=== PATIENT | male | born 1940 | race Caucasian/White ===

== ENCOUNTER 2016-10-30 20:56 | Observation (INO) | payer MEDICARE ==
[~2016-10-30] VITALS: Ht 177.8 cm; Wt 100.0 kg
[2016-10-30 21:00] VITALS: O2SAT 100
[2016-10-30] MEDS ORDERED: LIDOCAINE 1%/EPINEPHrine 1:100,000 SOLN 30 ML VIAL ONE (21:06)
[2016-10-30] MEDS ORDERED: ONDANSETRON HCL 4 MG/2 ML VIAL ONE (21:11)
--- NOTE | 2016-10-30 21:19 | PD ---
HPI Chief Complaint: syncope and collapse Time Seen by Provider: 20:59 Travel History International Travel<30 days: No Contact w/Intl Traveler<30days: No History of Present Illness HPI 72-year-old man, presents to the emergency department following syncope and collapse. He reports he's had episodes of dizziness and syncope for some time. Is not sure what the etiology is. He has not had one in a couple weeks. He was going to the fridge when he felt lightheaded and weak and collapsed to the ground. He came to the people standing around him. He reports after medially coming to develop 2 minute long episode where he could not really feel or move his arms or legs. He states he still felt dizzy at that time. He was called a trauma alert by fire department on scene. He's had some vomiting in route. He has chronic left shoulder pain is had worse left shoulder pain since falling. Currently complains of pain in his head and left shoulder. He also laceration to the back of his head. [facility] Past Medical History Narrative Medical History of mitral valve replacement, aortic valve replacement History of joints or neuritis, pulling out rheumatic on steroids for some time now weaned off History of diabetes when he was on steroids CAD, history of CABG History of benign brain tumor Allergies-Medications (Allergen,Severity, Reaction): Coded Allergies: Demerol (Verified Allergy, Severe, 10/30/16) Review of Systems Except as stated in HPI: all other systems reviewed are Neg Physical Exam Narrative GENERAL: Obese 72-year-old man, full spinal mobilization. SKIN: Focused skin assessment warm/dry. HEAD: Normocephalic. Large part by 7 cm stellate laceration to the posterior occiput. EYES: Pupils equal and round. No scleral icterus. No injection or drainage. ENT: No nasal bleeding or discharge. Mucous membranes pink and moist. NECK: Trachea midline. Cervical collar in place. No midline tenderness. No step-offs or deformities. CARDIOVASCULAR: Regular rate and rhythm. No murmur appreciated. RESPIRATORY: No accessory muscle use. Clear to auscultation. Breath sounds equal bilaterally. GASTROINTESTINAL: Abdomen soft, non-tender, nondistended. Hepatic and splenic margins not palpable. MUSCULOSKELETAL: No obvious deformities. Pain with movement of the left shoulder. He can range it some. Is no obvious deformity bruising ecchymosis or swelling. No other obvious extremity injuries. Back exam is also normal. NEUROLOGICAL: Awake and alert. No obvious cranial nerve deficits. Motor grossly within normal limits. Normal speech. PSYCHIATRIC: Appropriate mood and affect; insight and judgment normal. Data Data Last Documented VS Vital Signs Date Time Temp Pulse Resp B/P Pulse Ox O2 Delivery O2 Flow Rate FiO2 10/30/16 21:00 100 Nasal Cannula 2.00 Orders Lidocai-Epi 1%-1:100,000 Inj (Xylocaine- (10/30/16 21:06) I-Stat Profile (10/30/16 20:59) I-Stat Creatinine (10/30/16 20:59) Complete Blood Count With Diff (10/30/16 20:59) Prothrombin Time / Inr (Pt) (10/30/16 20:59) Act Partial Throm Time (Ptt) (10/30/16 20:59) Type And Screen (10/30/16 20:59) Fibrinogen (10/30/16 20:59) Red Blood Cells (Rbc) (10/30/16 20:59) Chest, Single Ap (10/30/16 20:59) Ct Brain W/O Iv Contrast(Rout) (10/30/16 20:59) Ct Cerv Spine W/O Contrast (10/30/16 20:59) Iv Access Insert/Monitor (10/30/16 20:59) Ecg Monitoring (10/30/16 20:59) Oximetry (10/30/16 20:59) Oxygen Administration (10/30/16 20:59) Pelvis, Ap Only (Routine) (10/30/16 ) Ondansetron Inj (Zofran Inj) (10/30/16 21:11) Electrocardiogram (10/30/16 ) Morphine Inj (Morphine Inj) (10/30/16 22:15) Troponin I (10/30/16 22:09) Ondansetron Inj (Zofran Inj) (10/30/16 22:15) Shoulder, Complete (>2vws) (10/30/16 ) Admit Order (Ed Use Only) (10/30/16 ) Labs Laboratory Tests Test 10/30/16 21:00 White Blood Count 7.6 TH/MM3 Red Blood Count 4.30 MIL/MM3 Hemoglobin 14.0 GM/DL Bedside Hemoglobin 13.3 G/DL Hematocrit 40.1 % Bedside Hematocrit 39.0 % Mean Corpuscular Volume 93.3 FL Mean Corpuscular Hemoglobin 32.6 PG Mean Corpuscular Hemoglobin 35.0 % Concent Red Cell Distribution Width 13.0 % Platelet Count 115 TH/MM3 Mean Platelet Volume 9.2 FL Neutrophils (%) (Auto) 72.1 % Lymphocytes (%) (Auto) 19.4 % Monocytes (%) (Auto) 7.2 % Eosinophils (%) (Auto) 0.7 % Basophils (%) (Auto) 0.6 % Neutrophils # (Auto) 5.5 TH/MM3 Lymphocytes # (Auto) 1.5 TH/MM3 Monocytes # (Auto) 0.6 TH/MM3 Eosinophils # (Auto) 0.1 TH/MM3 Basophils # (Auto) 0.0 TH/MM3 CBC Comment DIFF FINAL Differential Comment Prothrombin Time 11.9 SEC Prothromb Time International 1.1 RATIO Ratio Activated Partial 23.7 SEC Thromboplast Time Fibrinogen 241 mg/dL Bedside Sodium 139 MMOL/L Bedside Potassium 4.2 MMOL/L Bedside Chloride 102 MMOL/L Bedside Blood Urea Nitrogen 21 MG/DL Bedside Creatinine 0.9 MG/DL Bedside Glucose 207 MG/DL Troponin I LESS THAN 0.02 NG/ML Blood Type A NEGATIVE Antibody Screen NEGATIVE Crossmatch Leukocyte-Reduced Red Blood Cells Blood Bank Comment MDM Medical Screen Exam Complete: Yes Emergency Medical Condition: Yes Interpretation(s) LABS: CBC unremarkable Point of care chemistry is remarkable for elevated glucose Troponins negative Head CT: Negative. CT cervical spine: Suspected chronic degenerative changes described above. Moderate impressions on the thecal sac at C3 4 and C4 5 secondary to combination of disc and osteophyte. Chest x-ray: Compression change what appears to be the superior aspect of L1. They do deformity is not known. Status post sternotomy of what appears to be graft material over the ascending aorta. Pelvis x-ray: No definite abnormality is seen. My review of left shoulder x-ray: No definite fracture Differential Diagnosis Syncope and collapse, head injury, neck injury, shoulder injury, arrhythmia, dehydration, electrolyte abnormality, adverse medication effect, other Narrative Course Medical decision making INITIAL: This a 72-year-old man presents emergent (syncope and collapse so she with head injury, and a brief episode of whole body numbness tingling and weakness. This is resolved. Is no evidence of C-spine injury at this time. He does have some left shoulder pain seems to be musculoskeletal but could be radicular. We'll check CT head, C-spine. He had x-ray imaging of his chest and pelvis in the trauma bay. Likely admission for observation for syncope. Trauma Alert - Level One Trauma Alert Level One: Full trauma team activate Time Surgeon Summoned: 20:22 Diagnosis Diagnosis: Primary Impression: Syncope and collapse Additional Impressions: Head injury Scalp laceration Benjamin Amaya MD Oct 30, 2016 21:19
[2016-10-30 21:20] LABS: AUTOMATED NEUTROPHIL # 5.5 TH/MM3 (1.8-7.7); BASOPHIL % 0.6 % (0.0-2.0); EOSINOPHIL # 0.1 TH/MM3 (0-0.4); EOSINOPHIL % 0.7 % (0.0-4.0); HEMATOCRIT 40.1 % (39.0-51.0); HEMO FLAGS DIFF FINAL; LYMPH % 19.4 % (9.0-44.0); LYMPHOCYTE # 1.5 TH/MM3 (1.0-4.8); MEAN CELL VOLUME 93.3 FL (80.0-100.0); MEAN CORPUSCULAR HEMOGLOBIN 32.6 PG (27.0-34.0); MONO % 7.2 % (0.0-8.0); NEUT % 72.1 % (16.0-70.0); PLATELET COUNT 115 TH/MM3 (150-450); WHITE BLOOD COUNT 7.6 TH/MM3 (4.0-11.0)
[2016-10-30 21:22] LABS: I-STAT POTASSIUM 4.2 MMOL/L (3.5-4.9)
--- NOTE | 2016-10-30 21:30 | PD.CONS ---
History of Present Illness Service Trauma Consult Requested By ED Reason for Consult Trauma alert following a fall Primary Care Physician Diagnoses: History of Present Illness This is a gentleman in his 70s who was home when he felt himself become faint and he fell striking the back of his head. He has a history of syncope and falling, so much that he keeps a journal. He was brought in as a trauma alert because he stated he couldn't feel his arms and legs after his initial fall. There was a brief loss of consciousness and he has recall of events up until the fall. He takes aspirin. Review of Systems Constitutional: COMPLAINS OF: Fatigue Endocrine: DENIES: Heat/cold intolerance, Polydipsia, Polyuria, Polyphagia Eyes: DENIES: Blurred vision, Diplopia, Eye inflammation, Eye pain, Vision loss , Photosensitivity, Double Vision Ears, nose, mouth, throat: COMPLAINS OF: Vertigo Respiratory: DENIES: Apneas, Cough, Snoring, Wheezing, Hemoptysis, Sputum production, Shortness of breath Cardiovascular: COMPLAINS OF: Syncope Gastrointestinal: DENIES: Abdominal pain, Black stools, Bloody stools, Constipation, Diarrhea, Nausea, Vomiting, Difficulty Swallowing, Anorexia Genitourinary: DENIES: Sexual dysfunction, Urinary frequency, Urinary incontinence, Urgency, Hematuria, Dysuria, Nocturia, Penile Discharge, Testicular Pain, Testicular Swelling Musculoskeletal: COMPLAINS OF: Joint pain (left shoulder), Stiffness Integumentary: DENIES: Abnormal pigmentation, Nail changes, Pruritus, Rash Hematologic/lymphatic: DENIES: Bruising, Lymphadenopathy Immunologic/allergic: DENIES: Eczema, Urticaria Neurologic: COMPLAINS OF: Poor Balance Psychiatric: DENIES: Anxiety, Confusion, Mood changes, Depression, Hallucinations, Agitation, Suicidal Ideation, Homicidal Ideation, Delusions Past Family Social History Allergies: Coded Allergies: Demerol (Verified Allergy, Severe, 10/30/16) Past Medical History Benign brain tumor Polymyalgia rheumatica Fainting spells with vertigo Diabetes when on steroids for his polymyalgia rheumatica Chronic left shoulder pain, likely rotator cuff injury Past Surgical History Mitral valve replacement Aortic valve replacement CABG x 5 Reported Medications Aspirin Family History Reviewed and not relevant Social History Denies Physical Exam Vital Signs Vital Signs Date Time Temp Pulse Resp B/P Pulse Ox O2 Delivery O2 Flow Rate FiO2 10/30/16 21:00 100 Nasal Cannula 2.00 10/30/16 21:00 100 2.00 Physical Exam GENERAL: This is a well-nourished, well-developed patient, in no apparent distress. SKIN: Complex H shaped laceration to the occipital region of his scalp, small skin tear posterior right elbow HEAD: Calvarium is atraumatic and normocephalic EYES: Pupils equal round and reactive. Extraocular motions intact. No scleral icterus, conjunctiva is pink ENT: Nose without bleeding, purulent drainage or septal hematoma. Throat without erythema, tonsillar hypertrophy or exudate. Uvula midline. Airway patent. NECK: Trachea midline. No JVD or lymphadenopathy. Supple, nontender. CARDIOVASCULAR: Regular rate and rhythm. RESPIRATORY: Clear to auscultation bilaterally, no tenderness or crepitus to palpation of his chest wall or clavicles GASTROINTESTINAL: Abdomen soft, non-tender, nondistended. MUSCULOSKELETAL: Pelvis is stable to palpation and nontender, femoral pulses are palpable bilaterally, there is 1+ bilateral lower extremity edema with faint pulses palpable NEUROLOGICAL: Awake and alert. Cranial nerves II through XII intact. Motor and sensory grossly within normal limits with no focal neurologic deficit and normal speech PSYCHIATRY: Mood and affect appear appropriate Assessment and Plan Assessment and Plan Syncopal fall with a history of frequent falls, scalp laceration but no evidence of acute traumatic injury radiographically or by clinical exam, no indication for trauma admission - Will return care to ED for disposition with possible admission to medicine for workup of this patient's frequent falls - If upon further radiology review, fracture of the cervical spine or small traumatic brain bleed is identified, we will admit Que Lozada MD Oct 30, 2016 21:30
--- NOTE | 2016-10-30 21:42 | RADRPT ---
EXAM DATE/TIME: 10/30/2016 21:05 [facility] COMPARISON: No previous studies available for comparison. INDICATIONS : Trauma alert. Fell from standing position. Posterior head laceration. RADIATION DOSE: 56.35 CTDIvol (mGy) MEDICAL HISTORY : Unable to obtain. SURGICAL HISTORY : Unable to obtain. ENCOUNTER: Initial ACUITY: 1 day PAIN SCALE: Non-responsive LOCATION: cranial TECHNIQUE: Multiple contiguous axial images were obtained of the head. Using automated exposure control and adj ustment of the mA and/or kV according to patient size, radiation dose was kept as low as reasonably a chievable to obtain optimal diagnostic quality images. FINDINGS: CEREBRUM: The ventricles and cortical sulci are widened. There is decreased density in the cerebral white matte r. No evidence of midline shift, mass lesion, hemorrhage or acute infarction. No extra-axial fluid collections are seen. POSTERIOR FOSSA: The cerebellum and brainstem are intact. The 4th ventricle is midline. The cerebellopontine angle i s unremarkable. EXTRACRANIAL: The visualized portion of the orbits is intact. The patient has a scleral band on the left side. Ther e is soft tissue swelling at the posterior scalp just to the right of midline.SKULL: The calvaria is intact. No evidence of skull fracture. CONCLUSION: 1. No acute intracranial abnormality is seen. There is some atrophy and suspected small vessel ischem ic change in the white matter. 2. Posterior scalp injury. Nikhil Dobbins MD on October 30, 2016 at 21:39 Board Certified Radiologist. This report was verified electronically.
[2016-10-30 21:48] LABS: APTT (PATIENT) 23.7 SEC (24.3-30.1); INTERNATIONAL NORMALIZED RATIO 1.1 RATIO; PROTHROMBIN TIME - PATIENT 11.9 SEC (9.8-11.6)
--- NOTE | 2016-10-30 21:56 | RADRPT ---
EXAM DATE/TIME: 10/30/2016 21:05 [facility] COMPARISON: No previous studies available for comparison. INDICATIONS : Trauma alert. Fell from standing position. RADIATION DOSE: 41.37 CTDIvol (mGy) MEDICAL HISTORY : Unable to obtain. SURGICAL HISTORY : Unable to obtain. ENCOUNTER: Initial ACUITY: 1 day PAIN SCALE: Non-responsive LOCATION: Neck TECHNIQUE: Volumetric scanning of the cervical spine was performed. Multiplanar reconstructions i n the sagittal, coronal and oblique axial planes were performed. Using automated exposure control a nd adjustment of the mA and/or kV according to patient size, radiation dose was kept as low as reason ably achievable to obtain optimal diagnostic quality images. FINDINGS: The craniovertebral junction is intact. The C1 ring is intact. The C1-C2 articulation is aligned. There is some degenerative change at the anterior C1-C2 articulation. The dens is intact . The cervical vertebral bodies are normal in height. There is 5 mm of anterior subluxation of C7 on T1. There is some focal lucency seen at the C3, C4 and C6 vertebral bodies which appear fairly we ll corticated and likely are incidental chronic change. C2-C3: The bony spinal canal is normal in size. No evidence of disc bulge or herniation. The neura l foramina are bilaterally patent. C3-C4: Disc space is narrowed. There is mild to moderate disc bulge being worse on the right side c ausing at least a moderate impression on the thecal sac. There is uncovertebral hypertrophy. There is narrowing of the neural foramina. There is mild facet hypertrophy seen bilaterally. There are pr ominent osteophytes seen at the posterior superior aspect of the C4 vertebral body. The disc and ost eophytes cause a moderate impression on the thecal sac at this level. C4-C5: Disc space is narrowed. There are prominent osteophytes seen at the posterior left disc sedrick in causing a moderate focal impression on the thecal sac. There is uncovertebral and facet hypertrop hy being worse on the left. There is some narrowing of the neural foramina being worse on the left. C5-C6: Disc space is narrowed. There is mild disc bulge and osteophytic ridging. There is uncoverte bral and facet hypertrophy. The neural foramina are grossly normal. C6-C7: Disc space is narrowed. There is mild disc bulge and osteophytic ridging. There is uncovert ebral hypertrophy. The neural foramina are grossly normal. C7-T1: Again noted is the 5 mm anterior subluxation of C7 on T1. This is thought to be secondary to moderate facet hypertrophy. The disc space is narrowed. A significant impression on the thecal sac is not seen. CONCLUSION: Suspected chronic degenerative change as described above. There are moderate impress ions on the thecal sac at the C3-C4 and C4-C5 levels secondary to combination of disc and osteophytes . Nikhil Dobbins MD on October 30, 2016 at 21:41 Board Certified Radiologist. This report was verified electronically.
[2016-10-30] MEDS ORDERED: ONDANSETRON HCL 4 MG/2 ML VIAL IV PUSH ONE (22:15)
[2016-10-30] MEDS ORDERED: MORPHINE SULFATE 4 MG/ML INJ IV PUSH ONE (22:15)
--- NOTE | 2016-10-30 22:15 | RADRPT ---
EXAM DATE/TIME: 10/30/2016 20:52 [facility] COMPARISON: No previous studies available for comparison. INDICATIONS : Trauma alert. Pain from fall backwards. MEDICAL HISTORY : None. SURGICAL HISTORY : None. ENCOUNTER: Initial ACUITY: 1 day PAIN SCORE: Non-responsive. LOCATION: Bilateral pelvis FINDINGS: No definite acute fracture is seen. The hip joints are normally aligned. There is some degenerative change at the lower lumbar spine. CONCLUSION: No definite acute abnormality is seen. Nikhil Dobbins MD on October 30, 2016 at 22:03 Board Certified Radiologist. This report was verified electronically.
--- NOTE | 2016-10-30 22:17 | RADRPT ---
EXAM DATE/TIME: 10/30/2016 20:52 [facility] COMPARISON: No previous studies available for comparison. INDICATIONS : Trauma alert. Pain from fall backwards. MEDICAL HISTORY : None. SURGICAL HISTORY : CABG. ENCOUNTER: Initial ACUITY: 1 day PAIN SCORE: Non-responsive. LOCATION: Bilateral chest FINDINGS: The patient is status post sternotomy. There appears to be prosthetic material seen around the proxi mal aorta and aortic valve region. The heart size does appear enlarged. The lungs are grossly clear . There does appear to be some compressive change at the superior aspect of what appears to be the L 1 vertebral body. CONCLUSION: 1. Compressive change of what appears to be the superior aspect of L1. The age of this deformity is not known. 2. Status post sternotomy with what appears to be graft material over the ascending aorta. Nikhil Dobbins MD on October 30, 2016 at 22:00 Board Certified Radiologist. This report was verified electronically.
--- NOTE | 2016-10-30 22:43 | PD ---
Physical Exam Narrative I was asked by Dr. Amaya to repair patient's scalp laceration. Please see his documentation for full H&P. Data Data Last Documented VS Vital Signs Date Time Temp Pulse Resp B/P Pulse Ox O2 Delivery O2 Flow Rate FiO2 10/30/16 21:00 100 Nasal Cannula 2.00 Orders Lidocai-Epi 1%-1:100,000 Inj (Xylocaine- (10/30/16 21:06) I-Stat Profile (10/30/16 20:59) I-Stat Creatinine (10/30/16 20:59) Complete Blood Count With Diff (10/30/16 20:59) Prothrombin Time / Inr (Pt) (10/30/16 20:59) Act Partial Throm Time (Ptt) (10/30/16 20:59) Type And Screen (10/30/16 20:59) Fibrinogen (10/30/16 20:59) Red Blood Cells (Rbc) (10/30/16 20:59) Chest, Single Ap (10/30/16 20:59) Ct Brain W/O Iv Contrast(Rout) (10/30/16 20:59) Ct Cerv Spine W/O Contrast (10/30/16 20:59) Iv Access Insert/Monitor (10/30/16 20:59) Ecg Monitoring (10/30/16 20:59) Oximetry (10/30/16 20:59) Oxygen Administration (10/30/16 20:59) Pelvis, Ap Only (Routine) (10/30/16 ) Ondansetron Inj (Zofran Inj) (10/30/16 21:11) Electrocardiogram (10/30/16 ) Morphine Inj (Morphine Inj) (10/30/16 22:15) Troponin I (10/30/16 22:09) Ondansetron Inj (Zofran Inj) (10/30/16 22:15) Shoulder, Complete (>2vws) (10/30/16 ) Labs Laboratory Tests Test 10/30/16 21:00 White Blood Count 7.6 TH/MM3 Red Blood Count 4.30 MIL/MM3 Hemoglobin 14.0 GM/DL Bedside Hemoglobin 13.3 G/DL Hematocrit 40.1 % Bedside Hematocrit 39.0 % Mean Corpuscular Volume 93.3 FL Mean Corpuscular Hemoglobin 32.6 PG Mean Corpuscular Hemoglobin 35.0 % Concent Red Cell Distribution Width 13.0 % Platelet Count 115 TH/MM3 Mean Platelet Volume 9.2 FL Neutrophils (%) (Auto) 72.1 % Lymphocytes (%) (Auto) 19.4 % Monocytes (%) (Auto) 7.2 % Eosinophils (%) (Auto) 0.7 % Basophils (%) (Auto) 0.6 % Neutrophils # (Auto) 5.5 TH/MM3 Lymphocytes # (Auto) 1.5 TH/MM3 Monocytes # (Auto) 0.6 TH/MM3 Eosinophils # (Auto) 0.1 TH/MM3 Basophils # (Auto) 0.0 TH/MM3 CBC Comment DIFF FINAL Differential Comment Prothrombin Time 11.9 SEC Prothromb Time International 1.1 RATIO Ratio Activated Partial 23.7 SEC Thromboplast Time Fibrinogen 241 mg/dL Bedside Sodium 139 MMOL/L Bedside Potassium 4.2 MMOL/L Bedside Chloride 102 MMOL/L Bedside Blood Urea Nitrogen 21 MG/DL Bedside Creatinine 0.9 MG/DL Bedside Glucose 207 MG/DL Blood Type A NEGATIVE Antibody Screen NEGATIVE Crossmatch Leukocyte-Reduced Red Blood Cells Blood Bank Comment MDM Supervised Visit with MAYDA: No Procedures Procedure Narrative LACERATION REPAIR LOCATION: Occipital lobe LENGTH: Proximal 15 cm Y-shaped NUMBER OF STITCHES/JAGDISH: 13 Jagdish REPAIR: Verbal consent was obtained. The area of the laceration was cleaned and prepped. The laceration was infiltrated with lidocaine with epi. The wound was copiously irrigated and explored without evidence of foreign body, bony involvement, ligament injury, tendon injury, or neurovascular injury. The wound was closed using jagdish. This was a single layer repair. A sterile dressing was applied by nurse. The patient was advised to keep the affected area as clean and dry as possible using soap and water. There were no complications. Patient tolerated the procedure well. Ever Jones Oct 30, 2016 22:43
--- NOTE | 2016-10-30 23:29 | RADRPT ---
EXAM DATE/TIME: 10/30/2016 22:50 [facility] COMPARISON: No previous studies available for comparison. INDICATIONS : Pain from fall posteriorly. MEDICAL HISTORY : None. SURGICAL HISTORY : None. ENCOUNTER: Initial ACUITY: 1 day PAIN SCORE: 5/10 LOCATION: Left shoulder. FINDINGS: Multiple view examination of the left shoulder demonstrates no evidence of fracture or dislocation. The glenohumeral and acromioclavicular joints are maintained. There is normal range of motion betwee n internal and external rotation. Bony mineralization is normal. The patient is status post sternoto my and has graft material over the ascending aorta. CONCLUSION: No acute disease. Nikhil Dobbins MD on October 30, 2016 at 23:27 Board Certified Radiologist. This report was verified electronically.
--- NOTE | 2016-10-30 23:34 | HHI.HP ---
HPI Service [facility] Primary Care Physician Unknown Admission Diagnosis syncope and collapse, head injury, scalp laceration Diagnoses: (1) Syncope and collapse Diagnosis: Principal (2) Head injury Diagnosis: Principal (3) Scalp laceration Diagnosis: Principal (4) Hyperglycemia Diagnosis: Principal (5) Thrombocytopenia Diagnosis: Principal Travel History International Travel<30 Days: No Contact w/Intl Traveler <30 Da: No Traveled to Known Affected Are: No History of Present Illness This is a 72-year-old male with a PMH of MVR, AVR, HTN, Steroid Induced DM, CAD s/p CABG and h/o Syncope who presented to the ER as a Trauma Alert after syncopal episode w/ head injury and scalp laceration. Per patient, he was standing in the kitchen when he had acute episode of dizziness and subsequent syncope. Reports multiple episodes of syncope in the past w/ no clear etiology. On arrival, BP 133/79, HR 86, O2 sat 100% on 2L NC, Afebrile. Chemistry unremarkable except for BS 207. Troponin negative. CBC essentially unremarkable except for platelets 115, no previous labs for comparison. CT Head with no acute intracranial abnormality, posterior scalp injury. CT C- spine with chronic degenerative disease, no acute findings. CXR with compressive change of L1, age unknown. Pelvis X-ray negative for acute findings. Shoulder X-ray negative. S/p eval by Trauma Surgeon w/ no indication for trauma admission. Review of Systems Except as stated in HPI: all other systems reviewed are Neg ROS: 14 point review of systems otherwise negative. Past Family Social History Past Medical History PMH: MVR, AVR, HTN, Steroid Induced DM, CAD s/p CABG and h/o Syncope Past Surgical History PAST SURGICAL HISTORY: CABG Allergies: Coded Allergies: Demerol (Verified Allergy, Severe, 10/30/16) Family History PAST FAMILY HISTORY: Reviewed, positive for DM Social History PAST SOCIAL HISTORY: Negative for all call, tobacco or drugs. Physical Exam Vital Signs Vital Signs Date Time Temp Pulse Resp B/P Pulse Ox O2 Delivery O2 Flow Rate FiO2 10/30/16 21:00 100 Nasal Cannula 2.00 10/30/16 21:00 100 2.00 Physical Exam PE: GENERAL: Elderly male in no acute distress. HEENT: PERRLA, EOMI. No scleral icterus or conjunctival pallor. No lid lag or facial droop. Posterior scalp laceration, s/p repair CARDIOVASCULAR: Regular rate and rhythm. No obvious murmurs to auscultation. No chest tenderness to palpation. RESPIRATORY: No obvious rhonchi or wheezing. Clear to auscultation. Breath sounds equal bilaterally. GASTROINTESTINAL: Abdomen obese but soft, non-tender, nondistended. BS normal. MUSCULOSKELETAL: Extremities without clubbing, cyanosis, or edema. No obvious deformities. NEUROLOGICAL: Awake, alert and oriented x4. No focal neurologic deficits. Moving both upper and lower extremities spontaneously. Laboratory Laboratory Tests Test 10/30/16 21:00 White Blood Count 7.6 Red Blood Count 4.30 Hemoglobin 14.0 Bedside Hemoglobin 13.3 Hematocrit 40.1 Bedside Hematocrit 39.0 Mean Corpuscular Volume 93.3 Mean Corpuscular Hemoglobin 32.6 Mean Corpuscular Hemoglobin 35.0 Concent Red Cell Distribution Width 13.0 Platelet Count 115 Mean Platelet Volume 9.2 Neutrophils (%) (Auto) 72.1 Lymphocytes (%) (Auto) 19.4 Monocytes (%) (Auto) 7.2 Eosinophils (%) (Auto) 0.7 Basophils (%) (Auto) 0.6 Neutrophils # (Auto) 5.5 Lymphocytes # (Auto) 1.5 Monocytes # (Auto) 0.6 Eosinophils # (Auto) 0.1 Basophils # (Auto) 0.0 CBC Comment DIFF FINAL Differential Comment Prothrombin Time 11.9 Prothromb Time International 1.1 Ratio Activated Partial 23.7 Thromboplast Time Fibrinogen 241 Bedside Sodium 139 Bedside Potassium 4.2 Bedside Chloride 102 Bedside Blood Urea Nitrogen 21 Bedside Creatinine 0.9 Bedside Glucose 207 Troponin I LESS THAN 0.02 Blood Type A NEGATIVE Antibody Screen NEGATIVE Crossmatch Leukocyte-Reduced Red Blood Cells Blood Bank Comment Result Diagram: 10/30/16 2100 Assessment and Plan Problem List: (1) Syncope and collapse ICD Code: R55 Status: Acute (2) Head injury ICD Code: S09.90XA Status: Acute (3) Scalp laceration ICD Code: S01.01XA Status: Acute (4) Hyperglycemia ICD Code: R73.9 Status: Acute (5) Thrombocytopenia ICD Code: D69.6 Status: Acute Assessment and Plan A/P: 1. Syncope: s/p acute dizziness w/ syncopal episode, h/o multiple episodes in the past w/ unclear etiology. Admit for Observation, telemetry, check serial cardiac enzymes, check Echo. CXR, Pelvis X-ray and Shoulder X-ray negative for acute findings, images reviewed by me. Cardiology Consult for further evaluation 2. Head Injury: arrived as Trauma Alert secondary to head injury, CT Head/C- Spine w/ no acute findings, images reviewed by me. 3. Scalp Laceration: s/p repair in ER. Hold ASA for now. 4. Hyperglycemia: h/o Steroid-Induced DM, however now off steroid therapy, BS 207, check Hgb A1c, sliding scale w/ Accu-Cheks. 5. Thrombocytopenia: Platelets 115, no previous labs for comparison. Hold ASA as above in light of head trauma/scalp injury. Will monitor, repeat labs in am. 6. DVT Prophylaxis: SCD/teds. 7. Social work for DC planning as needed. 8. Case discussed at length with ER physician. Razia Fuentes MD Oct 30, 2016 23:34
[2016-10-30] MEDS ORDERED: BISACODYL 10 MG SUPP RECTAL PRN (23:45)
[2016-10-30] MEDS ORDERED: MORPHINE SULFATE 4 MG/ML INJ IV PRN (23:45)
[2016-10-30] MEDS ORDERED: SODIUM CHLORIDE 0.9% FLUSH 10 ML FLUSH IV FLUSH PRN (23:45)
[2016-10-30] MEDS ORDERED: ACETAMINOPHEN/HYDROcodone 325 MG/5 MG TAB PO PRN (23:45)
[2016-10-30] MEDS ORDERED: ACETAMINOPHEN 325 MG TAB PO PRN (23:45)
[2016-10-30] MEDS ORDERED: PRED10 PO (23:55)
[2016-10-30] MEDS ORDERED: LISI-515 PO (23:55)
[2016-10-30] MEDS ORDERED: MECL-62 PO (23:55)
[2016-10-30] MEDS ORDERED: LYCO10CA PO (23:55)
[2016-10-30] MEDS ORDERED: PANT20TA2 PO (23:55)
[2016-10-30] MEDS ORDERED: ASPI325T PO (23:55)
[2016-10-30] MEDS ORDERED: LATA0.002 EACH EYE (23:55)
[2016-10-30] MEDS ORDERED: ATOR40TA16 PO (23:55)
[2016-10-31] VITALS (7 sets, daily range): BP systolic 129–169; BP diastolic 72–81; PULSE 80–95; RESP 18–20; TEMP 97.5–98.1; O2SAT 93–97
[2016-10-31] MEDS: SODIUM CHLOR 0.9% 1000 ML INJ 1,000 ML IV SCH ×3 (01:37→21:59)
[2016-10-31] MEDS: ONDANSETRON HCL 4 MG/2 ML VIAL IVP PRN ×2 (03:11→11:28)
--- NOTE | 2016-10-31 08:05 | HHI.PR ---
Subjective Remarks Follow up for syncope with head injury. The patient reports history of BPPV, giant cell arteritis, and polymyalgia rheumatica; currently slowly weaning down on his steroids, now on Prednisone 6mg daily. The patient reports he has been feeling pretty well up until last night when he had acute onset of dizziness and disorientation. He felt very ill to his stomach then all of a sudden went down. Today he feels slightly better but he is very worried about this syncopal episode. He reports some nausea today but no vomiting. Denies any current dizziness. He states meclizine doesn't work for him. Economics Analyst is Dr. Frederick with [facility]. His cardiac cath and TAVR were done by Dr. Marshall and Dr. Candelaria also at [facility] [place] in [place], [place]. Objective Vitals Vital Signs Date Time Temp Pulse Resp B/P Pulse Ox O2 Delivery O2 Flow Rate FiO2 10/31/16 04:40 97.9 82 20 129/78 97 10/31/16 04:09 80 10/31/16 02:54 97.7 86 20 133/79 96 10/30/16 21:00 100 Nasal Cannula 2.00 10/30/16 21:00 100 2.00 Result Diagram: 10/30/16 2100 Imaging Last Impressions Head CT 10/30/162058 Signed Impressions: Service Date/Time: Sunday, October 30, 2016 21:05 - CONCLUSION: 1. No acute intracranial abnormality is seen. There is some atrophy and suspected small vessel ischemic change in the white matter. 2. Posterior scalp injury. Nikhil Dobbins MD Chest X-Ray 10/30/162058 Signed Impressions: Service Date/Time: Sunday, October 30, 2016 20:52 - CONCLUSION: 1. Compressive change of what appears to be the superior aspect of L1. The age of this deformity is not known. 2. Status post sternotomy with what appears to be graft material over the ascending aorta. Nikhil Dobbins MD Cervical Spine CT 10/30/162058 Signed Impressions: Service Date/Time: Sunday, October 30, 2016 21:05 - CONCLUSION: Suspected chronic degenerative change as described above. There are moderate impressions on the thecal sac at the C3-C4 and C4-C5 levels secondary to combination of disc and osteophytes. Nikhil Dobbins MD Shoulder X-Ray 10/30/16 0000 Signed Impressions: Service Date/Time: Sunday, October 30, 2016 22:50 - CONCLUSION: No acute disease. Nikhil Dobbins MD Pelvis X-Ray 10/30/16 0000 Signed Impressions: Service Date/Time: Sunday, October 30, 2016 20:52 - CONCLUSION: No definite acute abnormality is seen. Nikhil Dobbins MD Objective Remarks GENERAL: Well-nourished, well-developed elderly male patient in NAD. SKIN: Warm and dry. No rash. HEAD: Normocephalic. Posterior scalp laceration s/p repair. EYES: Pupils equal and round. No scleral icterus. No injection or drainage. ENT: No nasal bleeding or discharge. Mucous membranes pink and moist. NECK: Supple. Trachea midline. CARDIOVASCULAR: Regular rate and rhythm. S1, S2 noted. No murmur appreciated. RESPIRATORY: No accessory muscle use. Clear to auscultation. Breath sounds equal bilaterally. GASTROINTESTINAL: Abdomen soft, non-tender, nondistended. Normoactive bowel sounds x4. MUSCULOSKELETAL: No obvious deformities. Extremities without clubbing, cyanosis , or edema. NEUROLOGICAL: Awake and alert. No obvious cranial nerve deficits. Motor grossly within normal limits. Normal speech. PSYCHIATRIC: Appropriate mood and affect; insight and judgment normal. Medications and IVs Current Medications Medications (Trade) Dose Ordered Sig/Sánchez Route Start Time Stop Time Status Last Admin (NS 1000 ml Inj) 1,000 ml @ 100 mls/hr Q10H IV 10/30/16 23:31 10/31/16 01:37 (NS Flush) 2 ml UNSCH PRN IV FLUSH 10/30/16 23:45 (NS Flush) 2 ml BID IV FLUSH 10/31/16 09:00 (Zofran Inj) 4 mg Q6H PRN IVP 10/30/16 23:45 10/31/16 03:11 (Dulcolax Supp) 10 mg DAILY PRN RECTAL 10/30/16 23:45 (Tylenol) 650 mg Q6H PRN PO 10/30/16 23:45 ([place] 5-325 Mg) 1 tab Q4H PRN PO 10/30/16 23:45 (Morphine Inj) 2 mg Q3H PRN IV 10/30/16 23:45 A/P Problem List: (1) Syncope and collapse ICD Code: R55 Status: Acute (2) Head injury ICD Code: S09.90XA Status: Acute (3) Scalp laceration ICD Code: S01.01XA Status: Acute (4) Hyperglycemia ICD Code: R73.9 Status: Acute (5) Thrombocytopenia ICD Code: D69.6 Status: Acute Assessment and Plan 72-year-old male with a PMH of MVR, AVR, HTN, Steroid Induced DM, CAD s/p CABG and h/o Syncope who presented to the ER as a Trauma Alert after syncopal episode w/ head injury and scalp laceration. Syncope: s/p acute dizziness w/ syncopal episode, h/o multiple episodes in the past w/ unclear etiology. Head CT, CXR, Pelvis X-ray and Shoulder X-ray negative for acute findings, images reviewed by me. Monitor on telemetry. Ruled out ACS with negative serial cardiac enzymes and EKGs. Check Carotid U/S and Echo. Cardiology Consult for further evaluation, discussed with Dr. Au, appreciate recommendations Obtain records from patient's recent cath/TAVR in . Needs Holter prior to discharge. Cardiology also recommended neuro evaluation, consult placed Neuro ordered Brain MRI/MRA and EEG Head Injury: arrived as Trauma Alert secondary to head injury, CT Head/C-Spine w/ no acute findings, images reviewed by me. Scalp Laceration: s/p repair in ER, have 12 ayan removed in 10-14 days (11/10 -11/13). Hold ASA for now. Hyperglycemia: h/o Steroid-Induced DM, BS 207, Hgb A1c 6.2. Thrombocytopenia: Platelets 115, no previous labs for comparison. Hold ASA as above in light of head trauma/scalp injury. Will monitor. Polymyalgia Rheumatic/Giant Cell Arteritis: continue patient's Prednisone 6mg daily. Outpatient f/up with rheumatology. DVT Prophylaxis: SCD/teds. Avoid chemical prophylaxis with recent head injury. Written by Marti Johnson, acting as scribe for Dr. Murphy on 10/31/16 at 11:07 All or portions of this note were transcribed by scribe GAVIN Oreilly. I , Dr. Sergei Murphy personally performed the history, physical exam, and medical decision making; and confirmed the accuracy of the information in the transcribed note. Authenticated by Dr. Sergei Murphy on 10/31/16 at 23:10. Marti Johnson PA-C Oct 31, 2016 08:05 Jasbir Murphy DO Oct 31, 2016 23:10
[2016-10-31] MEDS ORDERED: META48.53 PO (08:53)
[2016-10-31] MEDS: SODIUM CHLORIDE 0.9% FLUSH 10 ML FLUSH IV FLUSH SCH ×2 (09:00→21:57)
[2016-10-31 10:23] LABS: BASOPHIL % 0.3 % (0.0-2.0); EOSINOPHIL % 0.3 % (0.0-4.0); HEMATOCRIT 36.7 % (39.0-51.0); HEMO FLAGS DIFF FINAL; LYMPH % 11.7 % (9.0-44.0); MEAN CELL VOLUME 93.2 FL (80.0-100.0); MEAN CORPUSCULAR HEMOGLOBIN 32.9 PG (27.0-34.0); MEAN CORPUSCULAR HGB CONC 35.3 % (32.0-36.0); MONO % 8.5 % (0.0-8.0); NEUT % 79.2 % (16.0-70.0); PLATELET COUNT 101 TH/MM3 (150-450); RED BLOOD COUNT 3.94 MIL/MM3 (4.50-5.90); RED CELL DISTRIBUTION WIDTH 13.4 % (11.6-17.2); WHITE BLOOD COUNT 8.9 TH/MM3 (4.0-11.0)
[2016-10-31 10:47] LABS: ALKALINE PHOSPHATASE 58 U/L (45-117); ALT (GPT) 20 U/L (12-78); ANION GAP 8 MEQ/L (5-15); AST (GOT) 9 U/L (15-37); BICARBONATE 24.9 MEQ/L (21.0-32.0); BLOOD UREA NITROGEN 16 MG/DL (7-18); CHLORIDE 107 MEQ/L (98-107); GLOMERULAR FILTRATION RATE 80 ML/MIN (>89); POTASSIUM 3.9 MEQ/L (3.5-5.1); SODIUM (NA) 140 MEQ/L (136-145); TOTAL BILIRUBIN ADULT 1.1 MG/DL (0.2-1.0)
[2016-10-31] MEDS ORDERED: PILL SPLITTER OTHER PRN (11:30)
--- NOTE | 2016-10-31 11:50 | PD.CONS ---
HPI Service Cardiology Consult Requested By Hosp Reason for Consult Syncope Primary Care Physician Unknown History of Present Illness 72 y/o M with PMHx of CAD s/p CABG 1994, MVR in 2010 and TAVR in 04/2016, HTN, DM, benign positional vertigo, temporal arteritis and polymyalgia rheumatica who presented to the ER after syncopal episode w/ head injury and scalp laceration. He reports he was in his usual state of health until yesterday when while standing in the kitchen had an acute episode of dizziness and subsequent blackout. Reports multiple episodes of syncope in the past of no clear etiology. He states before episodes happen he has bilateral finger numbness but no CV symptoms. Vital signs on arrival unremarkable as well as blood work and imaging. Cardiology has been consulted for further management and evaluation. He denies fever, chills, chest pain, SOB, palpitations, new medications, weight loss, bleeding, blurry vision. Review of Systems Consitutional: DENIES: Fatigue, Fever, Chills, Weight gain, Weight loss Eyes: DENIES: Amaurosis Fugax, Change in vision HEENT: DENIES: Lightheadedness, Change in hearing Respiratory: DENIES: See HPI, Cough, Snoring, Shortness of breath, Wheezing, Sputum production Cardiovascular: DENIES: See HPI, Chest pain, Palpitations, Syncope, Tachycardia Gastrointestinal: COMPLAINS OF: Nausea, DENIES: Vomiting, Change in bowel habits, Reflux, Bloody stools, Melena Genitourinary: DENIES: Urinary incontinence, Difficulty voiding Integumentary: DENIES: Rash Neurologic: DENIES: Tingling or numbness, Memory problems, Poor Balance, Stroke symptoms Musculoskeletal: DENIES: Joint pain, Muscle pain, Limited range of motion, Back pain Psychiatric: DENIES: Anxiety, Depression, Sleep disturbances Hematologic: DENIES: Bruising tendencies, Bleeding tendencies Endocrine: DENIES: Weight gain, Weight loss, Thyroid disease Past Family Social History Allergies: Coded Allergies: Demerol (Verified Allergy, Severe, 10/30/16) Past Medical History CAD s/p CABG 1994 MVR 2010 TAVR 2015 HTN DM BPV GCA Past Surgical History CABG MVR TAVR Reported Medications Reported Meds & Active Scripts Active Reported Metamucil Original Texture (Psyllium Hydrophilic Mucilloid) 48.57 % Pow 1 Scoop PO BID PRN 1 rounded TEASPOON in 8 oz of liquid at the first sign of irregularity. Latanoprost Opth Drops (Latanoprost) 0.005% Drops 1 Drop EACH EYE HS Refrigerate until opened. Lycopene 10 Mg Cap 20 Mg PO DAILY Lisinopril 20 Mg Tab 15 Mg PO HS Atorvastatin (Atorvastatin Calcium) 40 Mg Tab 40 Mg PO HS Meclizine (Meclizine HCl) 25 Mg Tab 25 Mg PO PRN Pantoprazole (Pantoprazole Sodium) 20 Mg Tab 20 Mg PO PRN Prednisone 10 Mg Tab 6 Mg PO DAILY Aspirin 325 Mg Tab 325 Mg PO DAILY Active Ordered Medications Current Medications Medications (Trade) Dose Ordered Sig/Sánchez Route Start Time Stop Time Status Last Admin (NS 1000 ml Inj) 1,000 ml @ 100 mls/hr Q10H IV 10/30/16 23:31 10/31/16 01:37 (NS Flush) 2 ml UNSCH PRN IV FLUSH 10/30/16 23:45 (NS Flush) 2 ml BID IV FLUSH 10/31/16 09:00 (Zofran Inj) 4 mg Q6H PRN IVP 10/30/16 23:45 10/31/16 11:28 (Dulcolax Supp) 10 mg DAILY PRN RECTAL 10/30/16 23:45 (Tylenol) 650 mg Q6H PRN PO 10/30/16 23:45 ([place] 5-325 Mg) 1 tab Q4H PRN PO 10/30/16 23:45 (Morphine Inj) 2 mg Q3H PRN IV 10/30/16 23:45 (Aspirin) 325 mg DAILY PO 11/01/16 09:00 (Lipitor) 40 mg HS PO 10/31/16 21:00 (Xalatan 0.005% Opth Soln) 1 drop HS EACH EYE 10/31/16 21:00 (Prinivil) 15 mg HS PO 10/31/16 21:00 (Deltasone) 1 mg DAILY PO 10/31/16 12:00 (Pill Splitter) 1 ea UNSCH PRN OTHER 10/31/16 11:30 (Deltasone) 5 mg DAILY PO 10/31/16 12:00 Family History Noncontributory Physical Exam Vital Signs Vital Signs Date Time Temp Pulse Resp B/P Pulse Ox O2 Delivery O2 Flow Rate FiO2 10/31/16 09:02 97.5 86 18 169/77 93 10/31/16 04:40 97.9 82 20 129/78 97 10/31/16 04:09 80 10/31/16 02:54 97.7 86 20 133/79 96 10/30/16 21:00 100 Nasal Cannula 2.00 10/30/16 21:00 100 2.00 Physical Exam GENERAL: Well-nourished, well-developed patient. SKIN: Warm and dry. HEAD: Normocephalic. EYES: No scleral icterus. No injection or drainage. NECK: Supple, trachea midline. No JVD or lymphadenopathy. CARDIOVASCULAR: Regular rate and rhythm without murmurs, gallops, or rubs. RESPIRATORY: Breath sounds equal bilaterally. No accessory muscle use. GASTROINTESTINAL: Abdomen soft, non-tender, nondistended. EXTREMITIES: No cyanosis, or edema. NEUROLOGICAL: Awake, alert, and oriented x 3. Non-focal. Laboratory Laboratory Tests Test 10/30/16 10/31/16 10/31/16 21:00 02:36 09:33 White Blood Count 7.6 8.9 Red Blood Count 4.30 3.94 Hemoglobin 14.0 13.0 Bedside Hemoglobin 13.3 Hematocrit 40.1 36.7 Bedside Hematocrit 39.0 Mean Corpuscular Volume 93.3 93.2 Mean Corpuscular Hemoglobin 32.6 32.9 Mean Corpuscular Hemoglobin 35.0 35.3 Concent Red Cell Distribution Width 13.0 13.4 Platelet Count 115 101 Mean Platelet Volume 9.2 9.0 Neutrophils (%) (Auto) 72.1 79.2 Lymphocytes (%) (Auto) 19.4 11.7 Monocytes (%) (Auto) 7.2 8.5 Eosinophils (%) (Auto) 0.7 0.3 Basophils (%) (Auto) 0.6 0.3 Neutrophils # (Auto) 5.5 7.0 Lymphocytes # (Auto) 1.5 1.0 Monocytes # (Auto) 0.6 0.8 Eosinophils # (Auto) 0.1 0.0 Basophils # (Auto) 0.0 0.0 CBC Comment DIFF FINAL DIFF FINAL Differential Comment Prothrombin Time 11.9 Prothromb Time International 1.1 Ratio Activated Partial 23.7 Thromboplast Time Fibrinogen 241 Bedside Sodium 139 Bedside Potassium 4.2 Bedside Chloride 102 Bedside Blood Urea Nitrogen 21 Bedside Creatinine 0.9 Bedside Glucose 207 Troponin I LESS THAN 0.02 0.02 0.02 Blood Type A NEGATIVE Antibody Screen NEGATIVE Crossmatch Leukocyte-Reduced Red Blood Cells Blood Bank Comment Sodium Level 140 Potassium Level 3.9 Chloride Level 107 Carbon Dioxide Level 24.9 Anion Gap 8 Blood Urea Nitrogen 16 Creatinine 0.83 Estimat Glomerular Filtration 80 Rate Random Glucose 111 Calcium Level 8.4 Total Bilirubin 1.1 Aspartate Amino Transf 9 (AST/SGOT) Alanine Aminotransferase 20 (ALT/SGPT) Alkaline Phosphatase 58 Total Protein 5.9 Albumin 3.4 Result Diagram: 10/31/1693210/31/16932 Imaging Last Impressions Head CT 10/30/162058 Signed Impressions: Service Date/Time: Sunday, October 30, 2016 21:05 - CONCLUSION: 1. No acute intracranial abnormality is seen. There is some atrophy and suspected small vessel ischemic change in the white matter. 2. Posterior scalp injury. Nikhil Dobbins MD Chest X-Ray 10/30/162058 Signed Impressions: Service Date/Time: Sunday, October 30, 2016 20:52 - CONCLUSION: 1. Compressive change of what appears to be the superior aspect of L1. The age of this deformity is not known. 2. Status post sternotomy with what appears to be graft material over the ascending aorta. Nikhil Dobbins MD Cervical Spine CT 10/30/162058 Signed Impressions: Service Date/Time: Sunday, October 30, 2016 21:05 - CONCLUSION: Suspected chronic degenerative change as described above. There are moderate impressions on the thecal sac at the C3-C4 and C4-C5 levels secondary to combination of disc and osteophytes. Nikhil Dobbins MD Shoulder X-Ray 10/30/16 0000 Signed Impressions: Service Date/Time: Sunday, October 30, 2016 22:50 - CONCLUSION: No acute disease. Nikhil Dobbins MD Pelvis X-Ray 10/30/16 0000 Signed Impressions: Service Date/Time: Sunday, October 30, 2016 20:52 - CONCLUSION: No definite acute abnormality is seen. Nikhil Dobbins MD Assessment and Plan Problem List: (1) Syncope and collapse Assessment and Plan: 72 y/o M with above history and findings admitted after syncopal episode. Patient has been dealing with this for a long time. DDx cardiac vs neuro etiology vs endo. Patient on chronic steroids given GCA/PMR. EKG NSR, IVCD with a RAD . No acute ST changes. Negative cardiac markers. He remains afebrile and HD stable. Recommendations: 2DEcho Carotid Ultrasound Neurology consult (BPV) Cont Telemetry Get records from [facility] regarding TAVR/LHC Check orthostatic 24hr Holter on discharge TSH, free T3 and T4 Cont home medications for CAD Thank for for the opportunity to taker part in the care of this patient Further therapy to be determined (2) Hyperglycemia (3) Scalp laceration (4) Head injury (5) Thrombocytopenia Dennis Vásquez MD Oct 31, 2016 11:49
--- NOTE | 2016-10-31 12:25 | EC ---
Study Study Date:10/31/2016 STUDY CONCLUSIONS SUMMARY - Left ventricle: The cavity size was normal. Wall thickness was normal. Systolic function was normal. The estimated ejection fraction was in the range of 50% to 55%. Wall motion was normal; there were no regional wall motion abnormalities. - Aortic valve: Valve area: 1.57cm^2 (Vmax). - Pulmonary arteries: PA peak pressure: 31mm Hg (S). If LV function is below 40, please consider prescribing an ACEI or ARB or document rationale for non-use. PROCEDURE DATA STUDY STATUS: Elective. Procedure: Transthoracic echocardiography. Image quality was poor. Scanning was performed from the parasternal, apical, and subcostal acoustic windows. Study completion: The patient tolerated the procedure well. Transthoracic echocardiography. M-mode, complete 2D, complete spectral Doppler, and color Doppler. Height: Height: 70in. Weight: Weight: 219.5lb. Body mass index: BMI: 31.6kg/m^2. Body surface area: BSA: 2.17m^2. Patient status: Inpatient. CARDIAC ANATOMY LEFT VENTRICLE: The cavity size was normal. Wall thickness was normal. Systolic function was normal. The estimated ejection fraction was in the range of 50% to 55%. Wall motion was normal; there were no regional wall motion abnormalities. AORTIC VALVE: aortic valve repalcement by history which is well seated without obvious perivalvular leak Trileaflet; normal thickness leaflets. Doppler: Transvalvular velocity was within the normal range. There was no stenosis. No regurgitation. Valve area: 1.57cm^2 (Vmax). Indexed valve area: 0.72cm^2/m^2 (Vmax). Mean gradient: 7mm Hg (S). Peak gradient: 11mm Hg (S). AORTA: Aortic root: The aortic root was normal in size. MITRAL VALVE: appearance of mitral valve replacement which is well seated without obvious perivalvular leak Structurally normal valve. Doppler: Transvalvular velocity was within the normal range. There was no evidence for stenosis. No regurgitation. Mean gradient: 5mm Hg (D). Peak gradient: 14mm Hg (D). LEFT ATRIUM: severely enlarged The atrium was normal in size. RIGHT VENTRICLE: The cavity size was normal. Wall thickness was normal. PULMONIC VALVE: Doppler: Transvalvular velocity was within the normal range. There was no evidence for stenosis. No regurgitation. TRICUSPID VALVE: Structurally normal valve. Doppler: Transvalvular velocity was within the normal range. No regurgitation. PULMONARY ARTERY: The main pulmonary artery was normal-sized. Systolic pressure was within the normal range. RIGHT ATRIUM: The atrium was normal in size. PERICARDIUM: There was no pericardial effusion. SYSTEMIC VEINS: Inferior vena cava: The vessel was normal in size. Patient weight: 219.5lb _Ejection fraction:_ 65-75% _Fractional shortening:_ 32% up to 5Kg 5-11.5Kg 11.6-22.9Kg 23-45Kg 45-57Kg Aortic Root 7-13 <17 13-22 17-27 17-27 LA diam 6-13 <23 24-38 33-47 37-40 RVID 10-17 7-15 7-15 7-18 8-17 LVIDd 12-22 <32 24-38 33-47 37-40 LVPW 2-4 3-6 5-7 6-8 7-8 IVS 2-4 3-6 5-7 6-8 7-8 BASIC MEASUREMENTS ADULT NORMAL Left ventricle LV internal dimension, ED, chordal 44.5 mm 43-52 level, PLAX LV internal dimension, ES, chordal 37.1 mm 23-38 level, PLAX Fractional shortening, chordal level, *17 % >29 PLAX LV posterior wall thickness, ED 9.33 mm IVS/LVPW ratio, ED 0.99 <1.3 Ventricular septum Septal thickness, ED 9.27 mm Aortic valve Leaflet separation 18 mm 15-26 BASIC MEASUREMENTS ADULT NORMAL Aortic valve Leaflet separation 18 mm 15-26 Aorta Root diameter, ED *17 mm 20-37 Left atrium Anterior-posterior dimension, ES *52 mm 19-40 Anterior-posterior dimension index, ES *2.4 cm/m^2 <2.2 LA/aortic root ratio 3.06 DOPPLER MEASUREMENTS ADULT NORMAL Main pulmonary artery Pressure, S *31 mm Hg =30 Aortic valve Peak velocity, S 167 cm/s Mean velocity, S 122 cm/s VTI, S 39.6 cm Mean gradient, S 7 mm Hg Peak gradient, S 11 mm Hg Valve area, Vmax 1.57 cm^2 Valve area index, Vmax 0.72 cm^2/m^2 Mitral valve Mean velocity, D 95.1 cm/s Mean gradient, D 5 mm Hg Peak gradient, D 14 mm Hg Maximal regurgitant velocity 156 cm/s Tricuspid valve Regurgitant peak velocity 235 cm/s Peak RV-RA gradient, S 22 mm Hg Maximal regurgitant velocity 235 cm/s Systemic veins Estimated CVP 10 mm Hg Right ventricle RV pressure, S *35 mm Hg <30 Pulmonic valve Peak velocity, S 97.7 cm/s LEGEND: Mean values are shown as u=mean value. Asterisk (*) polanco values outside specified normal range. Cholo Hoover [id number]
[2016-10-31] MEDS: predniSONE 5 MG TAB PO SCH (12:40)
[2016-10-31] MEDS: predniSONE 1 MG TAB PO SCH (12:40)
[2016-10-31 13:21] LABS: HEMOGLOBIN A1a 1.2 %; HEMOGLOBIN A1b 1.7 %; HEMOGLOBIN Ao 84.2 %; HEMOGLOBIN LA1C 2.1 %; HEMOGLOBIN P3 4.3 %
--- NOTE | 2016-10-31 14:24 | EKG ---
Date Performed: 10/30/2016 Time Performed: 22:30:58 PTAGE: 89 years EKG: Sinus rhythm MARKED RIGHT AXIS DEVIATION INTRAVENTRICULAR CONDUCTION DELAY ABNORMAL ECG NO PREVIOUS TRACING DOCTOR: Jacob Persaud Interpretating Date/Time 10/31/2016 14:23:35
--- NOTE | 2016-10-31 18:01 | RADRPT ---
EXAM DATE/TIME: 10/31/2016 17:04 [facility] COMPARISON: No previous studies available for comparison. INDICATIONS : Dizziness. Syncope with fall and scalp laceration. MEDICAL HISTORY : Cerebrovascular disease. Diabetes mellitus type 2. SURGICAL HISTORY : CABG Inguinal hernia repair. ENCOUNTER: Initial ACUITY: 1 day PAIN SCORE: 4/10 LOCATION: cranial Please note a normal MRA of the brain does not entirely exclude the possibility of a small aneurysm, nor the possibility of distal intracranial vessel disease. TECHNIQUE: 3D time of flight MRA was performed. Source images, multiplanar STS MIP, and 3D volume MIP reconstru ctions were reviewed. FINDINGS: There is excellent visualization of the major intracranial arteries out to the second-order branch ve ssels. There is no evidence for aneurysm, vessel truncation or stenosis, and no evidence for vascula r malformation. CONCLUSION: Normal examination for a patient of this age. Anthony Moran MD on October 31, 2016 at 18:00 Board Certified Radiologist. This report was verified electronically.
--- NOTE | 2016-10-31 18:01 | RADRPT ---
EXAM DATE/TIME: 10/31/2016 17:04 [facility] COMPARISON: CT BRAIN W/O CONTRAST, October 30, 2016, 21:05. INDICATIONS : Dizziness. Syncope with fall and scalp laceration. MEDICAL HISTORY : Cardiovascular disease Diabetes mellitus type 2. SURGICAL HISTORY : CABG Inguinal hernia repair. ENCOUNTER: Initial ACUITY: 1 day PAIN SCORE: 3/10 LOCATION: cranial TECHNIQUE: Multiplanar, multisequence MRI of the brain was performed without contrast. FINDINGS: CEREBRUM: The ventricles are normal for age. No evidence of midline shift, mass lesion, hemorrhage or acute in farction. No extraaxial fluid collections are seen. The pituitary gland and suprasellar cistern are normal in configuration. WHITE MATTER: There is chronic white matter changes bilaterally characteristic of ischemic correlation. POSTERIOR FOSSA: The cerebellum and brainstem are intact. The 4th ventricle is midline. The cerebellopontine angle is unremarkable. The cerebellar tonsils are normal in position. DIFFUSION IMAGING: No focal areas of restricted diffusion are seen. No evidence of acute infarction. EXTRACRANIAL: The visualized portions of the orbits and paranasal sinuses are unremarkable. CONCLUSION: 1. No acute intracranial pathology. 2. Bilateral chronic white matter changes. Anthony Moran MD on October 31, 2016 at 17:58 Board Certified Radiologist. This report was verified electronically.
--- NOTE | 2016-10-31 18:35 | MB ---
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 He presented to the ER as a trauma alert after a syncopal spell. He has had multiple stenoses. At times, when he feels that they are coming on he usually is able to hold onto something lasting less than 30 seconds and then it subsides. Other times they can occur even when he is lying down. He just feels something coming on and then he just goes out and loses awareness, consciousness. He states there is no shaking or incontinence or tongue biting. This time, he was standing in the kitchen, actually went to get a flashlight from a neighbor, came back in the kitchen, all of a sudden the dizziness and the syncope occurred. On arrival, he had a normal blood pressure of 133/79, heart rate 86, satting 100% on 2 liters nasal cannula. Blood glucose was 207, negative troponin. CBC was unremarkable except for platelets over 115,000. C-spine showed chronic degenerate changes. CT shows C-spine and chronic degenerate changes. No fracture. PAST SURGICAL HISTORY Coronary artery bypass graft PAST MEDICAL HISTORY As stated in HPI. ALLERGIES [facility] HISTORY Diabetes. SOCIAL HISTORY No alcohol, tobacco or drugs. MEDICATIONS Home, prednisone. For the rest, please refer to MAR. PHYSICAL EXAMINATION VITAL SIGNS vitals temperature is 97.5, pulse 86, respiratory rate 18, blood pressure 169/77, satting at 93%. NECK: Supple. I do not appreciate any carotid bruits. HEART: Regular. LUNGS: Clear. NEUROLOGIC: He is awake and alert. He is oriented. He is fluent. He does have chronic shoulder pain. There is no facial asymmetry. Tongue midline. Chronic shoulder pain as stated. He does not exhibit a drift, but he states that his left arm up into the biceps feels numb, but he can feel pain and temperature and pinprick. Cerebellar testing is normal. DTRs are trace. Toes withdraws. Gait I am not going to assess unless we have physical therapy at bedside for his safety. Current blood pressure is 169/77. LABORATORY DATA Reviewed. Hemoglobin A1c 6.2, glucose 111, GFR 80. Coag panel really unremarkable. CBC platelets today are 101,000. IMPRESSION 1. Syncopal spell in a patient with cardiac disease, history of mitral valve replacement, TAVR in 2015, bypass surgery in 1994, hypertension, diabetic with chronic benign paroxysmal positional vertigo. Recommend at this point in time getting an MRI of the brain, MRA [place] to look for intracranial disease that can account for any posterior circulation issues. Get a carotid ultrasound, echo and an EEG. Maintain him on aspirin. Continue his prednisone and further recommendations will be made depending on findings. MD JOSE Mckeon/ /2:14 PM /6:21 PM
--- NOTE | 2016-10-31 21:21 | RADRPT ---
EXAM DATE/TIME: 10/31/2016 15:51 [facility] COMPARISON: No previous studies available for comparison. INDICATIONS : Syncope. MEDICAL HISTORY : Myocardial infarction. Carcinoma, prostate. Brain aneurysm. Chemotherapy. SURGICAL HISTORY : Prostatectomy. CABG. Mitral and aortic valve replacement. ENCOUNTER: Initial ACUITY: 1 day PAIN SCORE: 0/10 LOCATION: Bilateral neck PEAK SYSTOLIC VELOCITIES (cm/sec): ICA/CCA RATIO: Right: 1.9 Left: 1.1 ICA: Right: 132 Left: 104 CCA: Right: 69 Left: 92 ECA: Right: 179 Left: 144 VERTEBRAL: Right: 67 antegrade Left: 52 antegrade Elevated flow velocities and ICA/CCA ratios have been found to correlate with increased degrees of vessel stenosis, calculated as percentage of diameter relative to a normal segment of distal ICA/CCA FINDINGS: RIGHT CAROTID: Mild/moderate atherosclerotic changes at the bifurcation. No significant stenosis is visualized. The waveforms are within normal limits. LEFT CAROTID: Mild to moderate scar changes of the bifurcation. No significant stenosis is visualized. The wavefor ms are within normal limits. VERTEBRAL ARTERIES: Antegrade flow is seen in both vertebral arteries. MISCELLANEOUS: None. CONCLUSION: Mild to moderate atherosclerotic changes are seen bilaterally at the bifurcations. However, no focal high grade or hemodynamically significant stenosis is demonstrated. Anthony Moran MD on October 31, 2016 at 21:17 Board Certified Radiologist. This report was verified electronically.
[2016-10-31] MEDS ORDERED: ASPIRIN 325 MG TAB PO ONE (21:30)
[2016-10-31] MEDS: LATANOPROST 0.005% OPHT SOLN 2.5 ML BTL EACH EYE SCH (21:55)
[2016-10-31] MEDS: ATORVASTATIN 40 MG TAB PO SCH (21:57)
[2016-10-31] MEDS: LISINOPRIL 10 MG TAB PO SCH (21:59)
[2016-11-01 00:09] VITALS: PULSE 82
[2016-11-01 04:31] VITALS: BP 105/63; PULSE 83; RESP 19; TEMP 97.6; O2SAT 95
[2016-11-01] MEDS: SODIUM CHLOR 0.9% 1000 ML INJ 1,000 ML IV SCH ×2 (05:31→17:47)
--- NOTE | 2016-11-01 07:48 | HHI.PR ---
Subjective Remarks Follow up for syncope with head injury. The patient denies any dizziness or lightheadedness today. He has been able to ambulate without difficulty. Denies any chest pain or shortness of breath. The patient reports these episodes have happened 5-6x in the past 8 months. 2 of the episodes occurred in bed while he was repositioning himself. Discussed outpatient event monitor vs loop recorder. Recommended to f/up with payment poster Dr. Ewing. Objective Vitals Vital Signs Date Time Temp Pulse Resp B/P Pulse Ox O2 Delivery O2 Flow Rate FiO2 11/01/16 04:31 97.6 83 19 105/63 95 11/01/16 00:09 82 10/31/16 23:52 98.1 84 20 146/81 95 10/31/16 19:52 97.6 95 18 162/76 95 10/31/16 16:31 86 18 140/72 96 10/31/16 09:02 97.5 86 18 169/77 93 I/O 10/31/16 10/31/16 10/31/16 11/01/16 11/01/16 11/01/16 07:00 15:00 23:00 07:00 15:00 23:00 Output Total 580 ml 900 ml Balance -580 ml -900 ml Output Urine Total 580 ml 900 ml Result Diagram: 10/31/16 0933 10/31/1633 Imaging Last Impressions Head Magnetic Resonance Angiography 10/31/16 0000 Signed Impressions: Service Date/Time: Monday, October 31, 2016 17:04 - CONCLUSION: Normal examination for a patient of this age. Anthony Moran MD Carotid Artery Ultrasound 10/31/16 0000 Signed Impressions: Service Date/Time: Monday, October 31, 2016 15:51 - CONCLUSION: Mild to moderate atherosclerotic changes are seen bilaterally at the bifurcations. However, no focal high grade or hemodynamically significant stenosis is demonstrated. Anthony Moran MD Brain MRI 10/31/16 0000 Signed Impressions: Service Date/Time: Monday, October 31, 2016 17:04 - CONCLUSION: 1. No acute intracranial pathology. 2. Bilateral chronic white matter changes. Anthony Moran MD Head CT 10/30/162058 Signed Impressions: Service Date/Time: Sunday, October 30, 2016 21:05 - CONCLUSION: 1. No acute intracranial abnormality is seen. There is some atrophy and suspected small vessel ischemic change in the white matter. 2. Posterior scalp injury. Nikhil Dobbins MD Chest X-Ray 10/30/162058 Signed Impressions: Service Date/Time: Sunday, October 30, 2016 20:52 - CONCLUSION: 1. Compressive change of what appears to be the superior aspect of L1. The age of this deformity is not known. 2. Status post sternotomy with what appears to be graft material over the ascending aorta. Nikhil Dobbins MD Cervical Spine CT 10/30/162058 Signed Impressions: Service Date/Time: Sunday, October 30, 2016 21:05 - CONCLUSION: Suspected chronic degenerative change as described above. There are moderate impressions on the thecal sac at the C3-C4 and C4-C5 levels secondary to combination of disc and osteophytes. Nikhil Dobbins MD Shoulder X-Ray 10/30/16 0000 Signed Impressions: Service Date/Time: Sunday, October 30, 2016 22:50 - CONCLUSION: No acute disease. Nikhil Dobbins MD Pelvis X-Ray 10/30/16 0000 Signed Impressions: Service Date/Time: Sunday, October 30, 2016 20:52 - CONCLUSION: No definite acute abnormality is seen. Nikhil Dobbins MD Objective Remarks GENERAL: Well-nourished, well-developed elderly male patient in [facility]. SKIN: Warm and dry. No rash. HEENT: Normocephalic. Posterior scalp laceration s/p repair. Pupils equal and round. Mucous membranes pink and moist. NECK: Supple. Trachea midline. CARDIOVASCULAR: Regular rate and rhythm. S1, S2 noted. No murmur appreciated. RESPIRATORY: No accessory muscle use. Clear to auscultation. Breath sounds equal bilaterally. GASTROINTESTINAL: Abdomen soft, non-tender, nondistended. Normoactive bowel sounds x4. MUSCULOSKELETAL: No obvious deformities. Extremities without clubbing, cyanosis , or edema. NEUROLOGICAL: Awake and alert. No obvious cranial nerve deficits. Motor grossly within normal limits. Normal speech. PSYCHIATRIC: Appropriate mood and affect; insight and judgment normal. Medications and IVs Current Medications Medications (Trade) Dose Ordered Sig/Sánchez Route Start Time Stop Time Status Last Admin (NS 1000 ml Inj) 1,000 ml @ 100 mls/hr Q10H IV 4/7/17 23:31 10/31/16 21:59 (NS Flush) 2 ml UNSCH PRN IV FLUSH 10/30/16 23:45 (NS Flush) 2 ml BID IV FLUSH 10/31/16 09:00 10/31/16 21:57 (Zofran Inj) 4 mg Q6H PRN IVP 10/30/16 23:45 10/31/16 11:28 (Dulcolax Supp) 10 mg DAILY PRN RECTAL 10/30/16 23:45 (Tylenol) 650 mg Q6H PRN PO 10/30/16 23:45 (Salix 5-325 Mg) 1 tab Q4H PRN PO 10/30/16 23:45 (Morphine Inj) 2 mg Q3H PRN IV 10/30/16 23:45 (Aspirin) 325 mg DAILY PO 11/01/16 09:00 (Lipitor) 40 mg HS PO 10/31/16 21:00 10/31/16 21:57 (Xalatan 0.005% Opth Soln) 1 drop HS EACH EYE 10/31/16 21:00 10/31/16 21:55 (Prinivil) 15 mg HS PO 10/31/16 21:00 10/31/16 21:59 (Deltasone) 1 mg DAILY PO 10/31/16 12:00 10/31/16 12:40 (Pill Splitter) 1 ea UNSCH PRN OTHER 10/31/16 11:30 (Deltasone) 5 mg DAILY PO 10/31/16 12:00 10/31/16 12:40 (Metamucil Smooth Texture Sf/ Gf Pkt) 1 pkt DAILY PO 11/01/16 09:00 Urinary Catheter: No Vascular Central Line Catheter: No A/P Problem List: (1) Syncope and collapse ICD Code: R55 Status: Acute (2) Head injury ICD Code: S09.90XA Status: Acute (3) Scalp laceration ICD Code: S01.01XA Status: Acute (4) Hyperglycemia ICD Code: R73.9 Status: Acute (5) Thrombocytopenia ICD Code: D69.6 Status: Acute Assessment and Plan 72-year-old male with a PMH of MVR, AVR, HTN, Steroid Induced DM, CAD s/p CABG and h/o Syncope who presented to the ER as a Trauma Alert after syncopal episode w/ head injury and scalp laceration. Syncope: s/p acute dizziness w/ syncopal episode, h/o multiple episodes in the past w/ unclear etiology. Head CT, CXR, Pelvis X-ray and Shoulder X-ray negative for acute findings, images reviewed by me. Monitor on telemetry. Ruled out ACS with negative serial cardiac enzymes and EKGs. Carotid U/S with mild-mod atherosclerotic changes bilaterally without high grade stenosis Echo with EF 50-55% Cardiology Consult, discussed with Dr. Au, appreciate recommendations Obtain records from patient's recent cath/TAVR in . Needs to f/up with payment poster Dr. Ewing for possible event monitor vs loop recorder Cardiology also recommended neuro evaluation, consult placed Neuro ordered Brain MRI/MRA which were unremarkable and EEG pending Consult PT Head Injury: arrived as Trauma Alert secondary to head injury, CT Head/C-Spine w/ no acute findings, images reviewed by me. Scalp Laceration: s/p repair in ER, have 12 ayan removed in 10-14 days (11/10 -11/13). Hyperglycemia: h/o Steroid-Induced DM, BS 207, Hgb A1c 6.2. Thrombocytopenia: Platelets 115, no previous labs for comparison. Will monitor. Polymyalgia Rheumatica/Giant Cell Arteritis: continue patient's Prednisone 6mg daily. Outpatient f/up with rheumatology. DVT Prophylaxis: SCD/teds. Avoid chemical prophylaxis with recent head injury. Written by Marti Johnson, acting as scribe for Dr. Murphy on 11/01/16 at 08:55 All or portions of this note were transcribed by scribe GAVIN Oreilly. I , Dr. Sergei Murphy personally performed the history, physical exam, and medical decision making; and confirmed the accuracy of the information in the transcribed note. Authenticated by Dr. Sergei Murphy on 11/01/16 at 23:31. Marti Johnson PA-C Nov 01, 2016 07:48 Jasbir Murphy DO Nov 01, 2016 23:31
[2016-11-01 08:38] VITALS: BP 150/85; PULSE 89; RESP 18; TEMP 96.9; O2SAT 98
[2016-11-01] MEDS: predniSONE 5 MG TAB PO SCH (09:08)
[2016-11-01] MEDS: SODIUM CHLORIDE 0.9% FLUSH 10 ML FLUSH IV FLUSH SCH ×2 (09:08→21:15)
[2016-11-01] MEDS: ASPIRIN 325 MG TAB PO SCH (09:09)
[2016-11-01] MEDS: predniSONE 1 MG TAB PO SCH (09:09)
[2016-11-01] MEDS: PSYLLIUM FIBER SF/GF 6 GM POWD PKT PO SCH (09:10)
[2016-11-01 11:39] VITALS: BP_SYST 129; BP_SYST 139; BP_DIAS 67; BP_DIAS 79; PULSE 82; RESP 18; O2SAT 95
[2016-11-01 15:52] VITALS: BP 112/58; PULSE 84; RESP 18; O2SAT 96
[2016-11-01 19:32] VITALS: BP 125/66; PULSE 86; RESP 18; TEMP 98.6; O2SAT 92
[2016-11-01] MEDS: LATANOPROST 0.005% OPHT SOLN 2.5 ML BTL EACH EYE SCH (21:15)
[2016-11-01] MEDS: ATORVASTATIN 40 MG TAB PO SCH (21:15)
[2016-11-01] MEDS: LISINOPRIL 10 MG TAB PO SCH (21:16)
[2016-11-02 00:01] VITALS: BP 121/69; PULSE 79; PULSE 80; RESP 18; TEMP 97.6; O2SAT 92
[2016-11-02] MEDS: SODIUM CHLOR 0.9% 1000 ML INJ 1,000 ML IV SCH (01:31)
[2016-11-02 03:45] VITALS: BP 120/67; PULSE 89; RESP 20; TEMP 98.1; O2SAT 92
[2016-11-02 07:29] VITALS: BP 124/69; PULSE 92; RESP 21; TEMP 97.7; O2SAT 94
--- NOTE | 2016-11-02 08:03 | MG ---
cc: VI HEATON M.D. AKA: [id number] No: Date: 11/02/2016 Age: 73 Sex: M Race: EEG NUMBER: [id number] NOTE With photic stimulation. Awake, drowsy study. MRI showing bilateral white matter changes, nothing acute INDICATIONS A 73-year-old man who came in as a Trauma Alert with syncope with some head laceration, no forewarning at this time that he was going to pass out. History of mitral valve and aortic valve replacement, diabetes, CABG, syncope in the past and prostate cancer. MEDICATIONS Aspirin. Prednisone. DESCRIPTION OF RECORD There is a lot of muscle artifact. Awake study, low amplitude but overall appears to be normal alpha rhythm. EKG - Difficulty to tell due to artifact. Photic stimulation did elicit a driving response. No evidence of any epileptiform features. IMPRESSION Overall normal-appearing EEG. Clinical correlation. MD JOSE Mckeon/ADWOA /7:37 AM /7:48 AM
[2016-11-02] MEDS: predniSONE 5 MG TAB PO SCH (08:26)
[2016-11-02] MEDS: ASPIRIN 325 MG TAB PO SCH (08:27)
[2016-11-02] MEDS: SODIUM CHLORIDE 0.9% FLUSH 10 ML FLUSH IV FLUSH SCH (08:27)
[2016-11-02] MEDS: PSYLLIUM FIBER SF/GF 6 GM POWD PKT PO SCH (08:27)
[2016-11-02] MEDS: predniSONE 1 MG TAB PO SCH (08:27)
--- NOTE | 2016-11-02 09:13 | HHI.DS ---
Discharge Summary Admission Date Oct 30, 2016 at 23:25 Discharge Date: Nov 02, 2016 Admitting Diagnosis syncope and collapse, head injury, scalp laceration (1) Syncope and collapse ICD Code: R55 Diagnosis: Principal (2) Head injury ICD Code: S09.90XA Diagnosis: Secondary (3) Scalp laceration ICD Code: S01.01XA Diagnosis: Secondary Procedures none Brief History - From Admission This is a 72-year-old male with a PMH of MVR, AVR, HTN, Steroid Induced DM, CAD s/p CABG and h/o Syncope who presented to the ER as a Trauma Alert after syncopal episode w/ head injury and scalp laceration. Per patient, he was standing in the kitchen when he had acute episode of dizziness and subsequent syncope. Reports multiple episodes of syncope in the past w/ no clear etiology. On arrival, BP 133/79, HR 86, O2 sat 100% on 2L NC, Afebrile. Chemistry unremarkable except for BS 207. Troponin negative. CBC essentially unremarkable except for platelets 115, no previous labs for comparison. CT Head with no acute intracranial abnormality, posterior scalp injury. CT C- spine with chronic degenerative disease, no acute findings. CXR with compressive change of L1, age unknown. Pelvis X-ray negative for acute findings. Shoulder X-ray negative. S/p eval by Trauma Surgeon w/ no indication for trauma admission. CBC/BMP: 10/31/16 0933 10/31/16 0933 Significant Findings Laboratory Tests Test 10/30/16 10/31/16 21:00 09:33 Red Blood Count 4.30 MIL/MM3 3.94 MIL/MM3 (4.50-5.90) (4.50-5.90) Platelet Count 115 TH/MM3 101 TH/MM3 (150-450) (150-450) Neutrophils (%) (Auto) 72.1 % 79.2 % (16.0-70.0) (16.0-70.0) Prothrombin Time 11.9 SEC (9.8-11.6) Activated Partial 23.7 SEC Thromboplast Time (24.3-30.1) Bedside Glucose 207 MG/DL (60-95) Troponin I LESS THAN 0.02 NG/ML (0.02-0.05) Hematocrit 36.7 % (39.0-51.0) Monocytes (%) (Auto) 8.5 % (0.0-8.0) Estimat Glomerular Filtration 80 ML/MIN (>89) Rate Random Glucose 111 MG/DL (74-106) Hemoglobin A1c 6.2 % (4.3-6.0) Calcium Level 8.4 MG/DL (8.5-10.1) Total Bilirubin 1.1 MG/DL (0.2-1.0) Aspartate Amino Transf 9 U/L (15-37) (AST/SGOT) Total Protein 5.9 GM/DL (6.4-8.2) Imaging Last Impressions Head Magnetic Resonance Angiography 10/31/16 0000 Signed Impressions: Service Date/Time: Monday, October 31, 2016 17:04 - CONCLUSION: Normal examination for a patient of this age. Anthony Moran MD Carotid Artery Ultrasound 10/31/16 0000 Signed Impressions: Service Date/Time: Monday, October 31, 2016 15:51 - CONCLUSION: Mild to moderate atherosclerotic changes are seen bilaterally at the bifurcations. However, no focal high grade or hemodynamically significant stenosis is demonstrated. Anthony Moran MD Brain MRI 10/31/16 Signed Impressions: Service Date/Time: Monday, October 31, 2016 17:04 - CONCLUSION: 1. No acute intracranial pathology. 2. Bilateral chronic white matter changes. Anthony Moran MD Head CT 10/30/162058 Signed Impressions: Service Date/Time: Sunday, October 30, 2016 21:05 - CONCLUSION: 1. No acute intracranial abnormality is seen. There is some atrophy and suspected small vessel ischemic change in the white matter. 2. Posterior scalp injury. Nikhil Dobbins MD Chest X-Ray 10/30/162058 Signed Impressions: Service Date/Time: Sunday, October 30, 2016 20:52 - CONCLUSION: 1. Compressive change of what appears to be the superior aspect of L1. The age of this deformity is not known. 2. Status post sternotomy with what appears to be graft material over the ascending aorta. Nikhil Dobbins MD Cervical Spine CT 10/30/162058 Signed Impressions: Service Date/Time: Sunday, October 30, 2016 21:05 - CONCLUSION: Suspected chronic degenerative change as described above. There are moderate impressions on the thecal sac at the C3-C4 and C4-C5 levels secondary to combination of disc and osteophytes. Nkihil Dobbins MD Shoulder X-Ray 10/30/16 0000 Signed Impressions: Service Date/Time: Sunday, October 30, 2016 22:50 - CONCLUSION: No acute disease. Nikhil Dobbins MD Pelvis X-Ray 10/30/16 0000 Signed Impressions: Service Date/Time: Sunday, October 30, 2016 20:52 - CONCLUSION: No definite acute abnormality is seen. Nikhil Dobbins MD PE at Discharge GENERAL: Well-nourished, well-developed elderly male patient in [facility]. SKIN: Warm and dry. No rash. HEENT: Normocephalic. Posterior scalp laceration s/p repair. Pupils equal and round. Mucous membranes pink and moist. NECK: Supple. Trachea midline. CARDIOVASCULAR: Regular rate and rhythm. S1, S2 noted. No murmur appreciated. RESPIRATORY: No accessory muscle use. Clear to auscultation. Breath sounds equal bilaterally. GASTROINTESTINAL: Abdomen soft, non-tender, nondistended. Normoactive bowel sounds x4. MUSCULOSKELETAL: No obvious deformities. Extremities without clubbing, cyanosis , or edema. NEUROLOGICAL: Awake and alert. No obvious cranial nerve deficits. Motor grossly within normal limits. Normal speech. PSYCHIATRIC: Appropriate mood and affect; insight and judgment normal. Pt update on day of discharge Patient has no complaints. Denies any acute overnight events. Inquired about what to do about any recurrent episodes. Follows with Dr. Ewing with cardiology. Hospital Course 72-year-old male with a PMH of MVR, AVR, HTN, Steroid Induced DM, CAD s/p CABG and h/o Syncope who presented to the ER as a Trauma Alert after syncopal episode w/ head injury and scalp laceration. Syncope: s/p acute dizziness w/ syncopal episode, h/o multiple episodes in the past w/ unclear etiology. Head CT, CXR, Pelvis X-ray and Shoulder X-ray negative for acute findings, Ruled out ACS with negative serial cardiac enzymes and EKGs. Carotid U/S with mild-mod atherosclerotic changes bilaterally without high grade stenosis Echo with EF 50-55% Cardiology Consult, seen by Dr. Au, appreciate recommendations Obtain records from patient's recent cath/TAVR in . Needs to f/up with flagger Dr. Ewing for possible event monitor vs loop recorder Cardiology also recommended neuro evaluation, consult placed Neuro consulted and ordered Brain MRI/MRA and EEG which were unremarkable Consulted PT, recommended outpatient vestibular rehab Head Injury: arrived as Trauma Alert secondary to head injury, CT Head/C-Spine w/ no acute findings Scalp Laceration: s/p repair in ER, have 12 ayan removed in 10-14 days (11/10 -11/13). Hyperglycemia: h/o Steroid-Induced DM, BS 207, Hgb A1c 6.2. Thrombocytopenia: Platelets 115, 110, stable. No signs of bleeding. Polymyalgia Rheumatica/Giant Cell Arteritis: continue patient's Prednisone 6mg daily. Outpatient f/up with rheumatology. Pt Condition on Discharge: Stable Discharge Disposition: Discharge Home Discharge Time: > 30 minutes Discharge Instructions DIET: Follow Instructions for: Heart Healthy Diet, Diabetic Diet Activities you can perform: Regular-No Restrictions Activities to Avoid: Driving Other Activity Instructions: Syncope precautions, no driving, swimming, bathing, climbing ladders, holding children alone etc Follow up Referrals: Cardiology - 2 Weeks with Nikhil Ewing MD PCP Follow-up - 11/09/16 Continued Medications: Aspirin (Aspirin) 325 Mg Tab 325 MG PO DAILY #30 Ref 0 TAB Atorvastatin (Atorvastatin) 40 Mg Tab 40 MG PO HS Cholesterol Management #30 Ref 0 TAB Latanoprost Opth Drops (Latanoprost Opth Drops) 0.005% Drops 1 DROP EACH EYE HS Refrigerate until opened. Glaucoma #2.5 Ref 0 ML Lisinopril (Lisinopril) 20 Mg Tab 15 MG PO HS #30 Ref 0 TAB Lycopene (Lycopene) 10 Mg Cap 20 MG PO DAILY Nutritional Supplement Ref 0 CAP Meclizine (Meclizine) 25 Mg Tab 25 MG PO PRN DIZZINESS Ref 0 TAB Pantoprazole (Pantoprazole) 20 Mg Tab 20 MG PO PRN NAUSEA #30 Ref 0 TAB Prednisone (Prednisone) 10 Mg Tab 6 MG PO DAILY Ref 0 TAB Psyllium Powder (Metamucil Original Texture) 48.57 % Pow 1 SCOOP PO BID 1 rounded TEASPOON in 8 oz of liquid at the first sign of irregularity. PRN CONSTIPATION Ref 0 CONTAINER Additional Information Written by Luiz Porter, acting as scribe for Dr. Murphy on 11/02/16 at 09:10. All or portions of this note were transcribed by scribGAVIN Cisneros. I, Dr. Sergei Murphy personally performed the history, physical exam, and medical decision making; and confirmed the accuracy of the information in the transcribed note. Authenticated by Dr. Sergei Murphy on 11/02/16 at 22:10. Luiz Porter Nov 02, 2016 09:13 Jasbir Murphy DO Nov 02, 2016 22:11
[2016-11-02 11:14] VITALS: PULSE 90
== END 2016-11-02 13:11 | disposition home or self-care (01) ==
LOC: NEPI 20:56 → EDBD 23:25 → NEDA 23:25 → NEPFCDU 10-31 02:52
PROVIDERS: ADMIT Hospitalist; ATTEND Hospitalist
DX: R55 Syncope and collapse (principal); R42 Dizziness and giddiness; R11.2 Nausea with vomiting, unspecified; M25.512 Pain in left shoulder; S01.01XA Laceration without foreign body of scalp, initial encounter; G89.29 Other chronic pain; Z95.2 Presence of prosthetic heart valve; E11.41 Type 2 diabetes mellitus with diabetic mononeuropathy; E11.65 Type 2 diabetes mellitus with hyperglycemia; Z95.1 Presence of aortocoronary bypass graft; I25.10 Atherosclerotic heart disease of native coronary artery without angina pectoris; Z86.011 Personal history of benign neoplasm of the brain; E66.9 Obesity, unspecified; Z23 Encounter for immunization; R20.0 Anesthesia of skin; R53.1 Weakness; Z79.82 Long term (current) use of aspirin; M31.5 Giant cell arteritis with polymyalgia rheumatica; Z91.81 History of falling; D69.6 Thrombocytopenia, unspecified; I10 Essential (primary) hypertension; Z79.899 Other long term (current) drug therapy; Z79.52 Long term (current) use of systemic steroids
CPT/HCPCS: 12005; 70450; 70544; 70551; 71010; 72125; 72170; 73030; 80053; 82435; 82565; 82947; 83036; 84132; 84295; 84484; 84520; 85025; 85384; 85610; 85730; 86850; 86900; 86901; 86920; 90471; 93005; 93306; 93880; 95819; 96374; 96375; 96376; 97163; 99285; G0378; G0390; G8987; G8988; J2270; J2405; J7030; J7512; 99291